=== PATIENT | female | born 1980 | race African-American/Black ===

== ENCOUNTER 2019-05-24 15:02 | Emergency (ER) | payer BC, OTHER ==
[~2019-05-24] VITALS: Ht 165.1 cm; Wt 99.8 kg
[2019-05-24 16:14] LABS: Albumin 3.5 g/dL (3.4-5.0); BUN/Creatinine Ratio 10.4; Calcium 8.6 mg/dL (8.5-10.1); Potassium 3.5 mmol/L (3.5-5.1)
[2019-05-24 16:17] LABS: Bilirubin, Total 0.9 mg/dL (0.2-1.0); Total Protein 7.7 g/dL (6.4-8.2)
[2019-05-24 16:22] LABS: Basophils # (auto) 0.1 uL; Basophils % (auto) 0.7 % (0.0-2.0); Eosinophils # (auto) 0 uL; Hematocrit 37.6 % (36.0-46.0); Hemoglobin 12.7 g/dL (12.2-16.2); Lymphocytes # (auto) 1.5 uL; Lymphocytes % (auto) 7.9 % (10.0-50.0); Mean Corpuscular Hemoglobin 26.9 pg (28.0-32.0); Mean Corpuscular Hgb Conc. 33.7 g/dL (32.0-36.0); Monocytes # (auto) 0.9 uL; Neutrophils % (auto) 86.4 % (37.0-80.0); Platelet Count (auto) 239 10^3/uL (140-450); Red Cell Distribution Width 14.7 % (11.8-14.3); White Blood Cell 18.6 10^3/uL (4.4-10.8)
[2019-05-24] MEDS ORDERED: SODIUM CHLORIDE 0.9% 1,000 ML IV ONE (18:26)
[2019-05-24] MEDS ORDERED: KETOROLAC TROMETH 30 MG/ML 1ML VIAL IV ONE (18:30)
[2019-05-24 18:38] LABS: Urine Bacteria FEW /hpf (None Seen); Urine Blood 2+ /uL (Negative); Urine Specific Gravity 1.006 (1.001-1.035); Urine WBC 35 /hpf (0 - 5)
[2019-05-24 18:44] VITALS: BP 137/89
[2019-05-24] MEDS ORDERED: cefTRIAXone 1GM/50ML D5W 50 ML IV ONE (20:15)
== END 2019-05-24 20:59 | disposition home or self-care (01) ==
LOC: ER 15:02
DX: N83.202 Unspecified ovarian cyst, left side (principal); N39.0 Urinary tract infection, site not specified
CPT/HCPCS: 36415; 76856; 80053; 81001; 81025; 85025; 96374; 99284; J1885; J7030